=== PATIENT | female | born 1955 | race Caucasian/White ===

== ENCOUNTER 2021-03-07 20:50 | Emergency (ER) | payer MEDICARE, OTHER ==
[~2021-03-07 20:50] MED LIST: CLARITIN10 M2 PO; CRESTOR5 MG PO; CYMBALTA20 MG PO; EVISTA60 MG PO; VALACYCLOVIR500 MG PO; VITAMIN D-32000 UNIT PO
[2021-03-07 23:17] LABS: BASOPHIL 0.6 % (0-2); EOSINOPHIL 1.4 % (0-7); HCT 39.3 % (37.0-47.0); HGB 12.5 g/dl (12.5-16.0); LYMPHOCYTE 8.5 % (15-48); MCH 31.1 pg (25.0-31.0); MCHC 31.8 g/dL (32.0-36.0); MCV 97.8 fL (78.0-100.0); MONOCYTE 7.3 % (0-12); MPV 9.1 fL (6.0-9.5); NRBC 0; PLT 299 K/uL (150-400); RBC 4.02 M/uL (4.20-5.40); RDW 12.6 % (11.5-14.0); WBC 8.8 K/uL (4.0-10.5)
[2021-03-07 23:29] LABS: ALBUMIN 3.8 g/dL (3.4-5.0); BILIRUBIN - TOTAL 0.2 mg/dL (0.2-1.0); BUN/CREAT RATIO (CALC) 20.5 RATIO; CREATININE 0.73 mg/dL (0.51-0.95); GLOBULIN (CALCULATION) 3.9 g/dL; POTASSIUM 3.8 mmol/L (3.5-5.1); TOTAL PROTEIN 7.7 g/dL (6.4-8.2)
[2021-03-07 23:54] LABS: INFLUENZA A NAA NEGATIVE (NEGATIVE)
[2021-03-08 00:02] LABS: CORONAVIRUS 2019 SARS-COV-2 POSITIVE (NEGATIVE)
[2021-03-08 00:24] LABS: BILIRUBIN NEGATIVE (NEGATIVE); BLOOD NEGATIVE Ery/uL (NEGATIVE); CLARITY CLEAR (CLEAR); COLOR YELLOW (YELLOW); GLUCOSE (U) NORMAL (NORMAL); LEUKOCYTES NEGATIVE Leu/uL (NEGATIVE); NITRITE NEGATIVE (NEGATIVE); PROTEIN NEGATIVE (NEGATIVE); UROBILINOGEN 0.2 mg/dL (0.2-1.0)
== END 2021-03-08 00:56 | disposition home or self-care (01) ==
LOC: FER 20:50
PROVIDERS: Emergency Medicine Emergency Medical Services
DX: U07.1 COVID-19 (principal); F41.9 Anxiety disorder, unspecified; Z79.899 Other long term (current) drug therapy
CPT/HCPCS: 36415; 80053; 81003; 85025; J1885; U0002